=== PATIENT | female | born 1985 | race Caucasian/White ===

== ENCOUNTER → 2016-05-27 | Outpatient (CLI) | payer OTHER ==
[~2016-05-27] MED LIST: BCPILLS PO; FERR28TA2; IBUP-1050 PO; MTR600X PO; PRENTAB26 PO; TRAM-10 PO
--- NOTE | 2016-05-27 15:07 | MAMMOGRAPHY REPORT ---
ULTRASOUND OF BOTH BREASTS: 05/27/2016 CLINICAL HISTORY: Six-month follow-up of bilateral breast masses. History of ultrasound-guided core needle biopsy of the right 7:00 periareolar breast mass 12/15/2015, with pathology yielding fibrocy stic and fibroadenomatoid change. The patient is currently 13 weeks . COMPARISON: Comparison is made to exams dated: 11/26/2015 mammogram, 11/26/2015 ultrasound, 6 ultrasound biopsy, and 12/15/2015 mammogram - [facility]. TECHNIQUE: Real-time targeted ultrasound of both breasts was performed. FINDINGS: Real-time, high resolution targeted ultrasound was performed of the previously seen bilat eral breast masses. In the right breast at 7:00 periareolar region, again noted is an oval hypoecho ic parallel solid mass which measures 2.7 x 0.8 x 2 cm, not significantly changed compared to the exam where the mass measured 2.5 x 0.7 x 2.0 cm. This was previously biopsied and yielded b enign pathology. In the right breast at 1:00, 4 cm from the nipple, again noted is an oval hypoechoic parallel circum scribed mass which measures 5 x 3 x 4 mm, also stable compared to the 11/26/2015 exam. In the left b reast 1:00, 7 cm from the nipple, again noted is an oval circumscribed parallel hypoechoic solid mas s which measures 11 x 5 x 7 mm, not significantly changed compared to the 11/26/2015 exam. These 2 m asses appear similar to the previously biopsied mass and are probably benign and likely represent fi broadenomas. IMPRESSION: ACR-BI-RADS CATEGORY 3: PROBABLY BENIGN - FOLLOW-UP RECOMMENDED Three similar-appearing hypoechoic masses in bilateral breasts are stable compared to the 11/26/2015 exam. The largest mass in the right 7:00 periareolar region breast was biopsied and yielded benign pathology including fibrocystic and fibroadenomatoid changes. 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 Recommend another short interval follow-up ultrasound in 6 months to confirm one-year stability. The patient was verbally notified of the results. Opal Zurita M.D. ah/:05/27/2016 08:14:14 Cook Candy: Mireya BLANCO(R)(M), [facility] letter sent: Follow Up Recommended 3 BI-RADS Code: ACR-BI-RADS Category 3: Probably Benign
== END | disposition home or self-care (01) ==
LOC: C.MAMM 07:49
PROVIDERS: ATTEND Physician Assistant
DX: N63 Unspecified lump in breast (principal)

== ENCOUNTER 2016-12-05 21:02 | Inpatient (IN) | payer OTHER ==
[~2016-12-05] VITALS: Ht 162.6 cm; Wt 90.9 kg
[~2016-12-05 21:02] MED LIST changes: -FERR28TA2; -MTR600X PO; -PRENTAB26 PO
[2016-12-05 21:55] LABS: HEMATOCRIT 39.1 % (37-47); MEAN CORPUSCULAR HEMOGLOBIN 28.3 pg (25-34); MEAN CORPUSCULAR HGB CONC 33.2 g/dl (32-36); MEAN PLATELET VOLUME 9.3 fL (7.4-10.4); PLATELET COUNT 255 K/uL (130-400); WHITE BLOOD COUNT 9.45 K/uL (4.8-10.8)
[2016-12-05] MEDS ORDERED: BUPIVACAINE 0.25% 30 ML VIAL ONE (23:16)
[2016-12-05] MEDS ORDERED: EpHEDrine SULFATE INJ 50 MG/ML AMP ONE (23:16)
[2016-12-05] MEDS ORDERED: FENTANYL CITRATE INJ 50 MCG/1 ML 2 ML VIAL ONE (23:17)
[2016-12-05] MEDS ORDERED: FENTANYL 2MCG/ML ROPIV 1.25MG/ML 100ML BAG EPI ONE (23:17)
--- NOTE | 2016-12-05 23:56 | HISTORY & PHYSICAL EXAMINATION ---
DATE OF ADMISSION: 12/05/2016 HISTORY OF PRESENT ILLNESS: The patient is a 31-year-old G1, P0, due date 12/02/2016, making her 40 weeks and 3 days today; who presented to labor and delivery with contractions. On arrival she was found to be 3 to 4 cm dilated. She was made to ambulate. Cervix is now 6 cm. Decision therefore made to admit patient and anticipate vaginal delivery. She had no shortness of breath, no chills, no fever, no rupture of membranes. No bloody show. COURSE: Has been unremarkable. LABS: Blood type A positive, antibody negative, rubella immune, GBS negative. PAST MEDICAL HISTORY: History of dyslipidemia. PAST SURGICAL HISTORY: History of ERCP and cholecystectomy. ALLERGIES: SULFA DRUGS. SOCIAL HISTORY: The patient denies tobacco, drug or alcohol use. REVIEW OF SYSTEMS: Negative except as dictated in the HPI. FAMILY HISTORY: Noncontributory. PHYSICAL EXAMINATION: GENERAL: Well-developed, well-nourished white female in labor discomfort. HEART: S1, S2, regular rhythm and rate. LUNGS: Clear to auscultation bilaterally. ABDOMEN: Gravid. PELVIC: By nurse shows is 6 cm dilated. EXTREMITIES: No cyanosis, clubbing or edema. ASSESSMENT AND PLAN: A 31-year-old 1, para 0 at 40 and 3 weeks; presented to labor and delivery in labor. Plan is to admit patient and anticipate vaginal delivery. [facility]ITAL[facility]
[2016-12-06] MEDS: LACTATED RINGER'S 1000ML 1,000 ML IV SCH ×3 (00:01→07:23)
[2016-12-06] MEDS ORDERED: NALOXONE HCL INJ 1 MG in SODIUM CHLORIDE 0.9% 1000ML 1,000 ML IV PRN (00:10)
[2016-12-06] MEDS ORDERED: LACTATED RINGER'S 1000ML 500 ML IV PRN (00:10)
[2016-12-06] MEDS ORDERED: NALBUPHINE HCL INJ 10 MG/ML AMP IV PRN (00:15)
[2016-12-06] MEDS ORDERED: ONDANSETRON INJ 2 MG/ML 2 ML VIAL IV PRN (00:15)
[2016-12-06] MEDS ORDERED: EpHEDrine SULFATE INJ 50 MG/ML AMP IV PRN (00:15)
[2016-12-06] MEDS ORDERED: DiphenhydrAMINE HCL 50 MG/ML VIAL IV PRN (00:15)
[2016-12-06] MEDS ORDERED: NALOXONE HCL INJ 0.4 MG/1 ML VIAL/CARP IV PRN (00:15)
[2016-12-06] MEDS ORDERED: FERR28TA2 (00:22)
[2016-12-06] MEDS ORDERED: PRENTAB26 PO (00:22)
[2016-12-06 00:30] VITALS: Ht 162.6 cm; Wt 90.9 kg
[2016-12-06] MEDS ORDERED: OXYTOCIN 30 UNITS/500ML NSS IV ONE (07:03)
[2016-12-06] MEDS: FENTANYL 2MCG/ML ROPIV 1.25MG/ML 100ML BAG EPI PRN ×2 (07:09→09:11)
[2016-12-06] MEDS ORDERED: DIPHTHERIA/TETANUS/PERTUSSIS 0.5 ML SYR/VIAL IM. ONE (10:45)
[2016-12-06] MEDS ORDERED: HYDROCORTISONE ACETATE 25 MG SUPP PR PRN (10:45)
[2016-12-06] MEDS ORDERED: OXYTOCIN 30 UNITS/500ML NSS IV PRN (10:45)
[2016-12-06] MEDS ORDERED: VARICELLA VIRUS VACCINE LIVE 1 VIAL SQ. ONE (10:45)
[2016-12-06] MEDS ORDERED: BENZOCAINE 20% AER SPR 82.5 GM CAN EXT PRN (10:45)
[2016-12-06] MEDS ORDERED: SUPERCREAM 0.870 % 15GM JAR EXT PRN (10:45)
[2016-12-06] MEDS ORDERED: LANOLIN OINT EXT PRN ×2 (10:45)
[2016-12-06] MEDS ORDERED: ACETAMINOPHEN 325 MG TAB PO PRN (10:45)
[2016-12-06] MEDS ORDERED: OXYCODONE/ACETAMINOPHEN 5-325 TAB PO PRN (10:45)
[2016-12-06] MEDS ORDERED: ACETAMINOPHEN/CODEINE 300/30MG TAB PO PRN ×2 (10:45)
--- NOTE | 2016-12-06 11:22 | DELIVERY SUMMARY ---
DATE OF OPERATION: 12/06/2016 TIME OF DELIVERY: 10:05 a.m. DELIVERY OF PLACENTA: 10:08 a.m. HISTORY OF PRESENT ILLNESS: The patient is a 31-year-old 1, para 0 at 40 weeks and 4 days gestation who was admitted to labor and delivery on the morning of 12/06/2016 in active labor. She received an epidural for anesthesia. Artificial rupture of membranes was performed at 5:10 a.m. with light meconium stained amniotic fluid noted. She reached complete dilation at 5:10 a.m. She was allowed to labor down until she had the urge to push. She pushed to delivery at 10:05 a.m. She delivered a viable female infant in the right occiput anterior position to an intact perineum. The anterior shoulder was delivered with Kirsten position. The baby was delivered and placed on the patient's abdomen. Cord was clamped x2 and cut. Apgars were 8 at minute, 9 at 5 minutes. Please see nursing notes for further baby assessment. Cord blood was then obtained and intact placenta with 3-vessel cord was delivered at 10:08 a.m. Oxytocin infusion was then begun. The lower uterine segment and vagina was cleared of any blood clots and debris. Once excellent uterine tone was noted, exploration of the perineum noted a second degree midline perineal laceration, which was repaired with 2-0 and 3-0 Vicryl in a normal fashion. No other lacerations were seen. Digital rectal exam noted good sphincter tone. Estimated blood loss was 250 mL. All sponge, instrument and needle counts found to be correct x2. Both the patient and baby tolerated the delivery well and were in recovery with stable vital signs. I attest to the content of the Intraoperative Record and any orders documented therein. Any exceptions are noted below. MTDD
[2016-12-06] MEDS: IBUPROFEN 600 MG TAB PO PRN ×2 (12:58→20:28)
--- NOTE | 2016-12-06 13:08 | Anesthesia Procedure Note ---
Anesthesia Epidural Removal Nt Date & Time Dec 06, 2016 at 13:08 Vital Signs Pain Intensity: 0.0 Notes Mental Status: alert / awake / arousable, participated in evaluation Nausea / Vomiting: adequately controlled Pain: adequately controlled Airway Patency, RR, SpO2: stable & adequate BP & HR: stable & adequate Hydration State: stable & adequate Neuraxial Anesthesia: was administered Anesthetic Complications: no major complications apparent, pt satisfied with anesthetic care Epidural: removed without complications, with tip intact
[2016-12-06 15:55] VITALS: BP 136/80; PULSE 91; TEMP 36.6; O2SAT 96
[2016-12-06 19:30] VITALS: BP 132/80; PULSE 90; TEMP 36.4; O2SAT 97
[2016-12-06] MEDS: DOCUSATE SODIUM 100 MG CAP PO SCH (19:33)
[2016-12-06 23:30] VITALS: BP 112/67; PULSE 90; TEMP 36.4; O2SAT 97
[2016-12-07] MEDS: IBUPROFEN 600 MG TAB PO PRN ×4 (02:52→19:50)
[2016-12-07 03:00] VITALS: BP 125/73; PULSE 90; TEMP 36.4
[2016-12-07 07:46] LABS: HEMATOCRIT 27.7 % (37-47)
--- NOTE | 2016-12-07 08:13 | OB/GYN Progress Note ---
FISH AGENT Progress Note Date of Service Dec 07, 2016. Subjective conversation w/ patient, physical exam Ambulation: ambulating normally Voiding: no voiding problems Diet Tolerance: Regular Diet Lochia: Small Feeding Type: Breast Feeding Objective Vital Signs Date Time Temp Pulse Resp B/P (MAP) Pulse Ox O2 Delivery O2 Flow Rate FiO2 12/07/16 03:00 36.4 90 20 125/73 (90) Room Air 12/06/16 23:30 36.4 90 20 112/67 (82) Room Air 12/06/16 23:30 97 Room Air 12/06/16 19:30 Room Air 12/06/16 19:30 36.4 90 18 132/80 (97) 97 Room Air 12/06/16 15:55 96 Room Air 12/06/16 15:55 36.6 91 20 136/80 (98) 96 Room Air 12/06/16 12:45 Room Air Physical Exam General Appearance: WELL-APPEARING, NO APPARENT DISTRESS Fundus: Firm Extremities: non-tender, normal inspection, no pedal edema Laboratory Results Last 24 Hours Test 12/07/16 06:22 Hemoglobin 9.2 g/dL Hematocrit 27.7 % Assessment and Plan Post- Continue Routine Care: tent d/c in AM
[2016-12-07 08:15] VITALS: BP 118/68; PULSE 90; TEMP 36.7; O2SAT 99
[2016-12-07] MEDS: DOCUSATE SODIUM 100 MG CAP PO SCH ×2 (08:33→19:49)
[2016-12-07] MEDS: FERROUS SULFATE 325 MG TAB PO SCH (08:33)
[2016-12-07] MEDS: PRENATAL VITAMIN TAB PO SCH (08:33)
[2016-12-07 15:10] VITALS: BP 113/72; PULSE 88; TEMP 36.7; O2SAT 98
[2016-12-07] MEDS ORDERED: BISACODYL 5 MG TABEC PO SCH (20:00)
[2016-12-08] VITALS: BP 129/79; PULSE 86; TEMP 36.4; O2SAT 97
[2016-12-08] MEDS: IBUPROFEN 600 MG TAB PO PRN ×3 (00:07→08:00)
[2016-12-08 06:38] LABS: HEMATOCRIT 24.6 % (37-47); MEAN CELL VOLUME 86.6 fL (80-100); MEAN CORPUSCULAR HEMOGLOBIN 28.5 pg (25-34); MEAN CORPUSCULAR HGB CONC 32.9 g/dl (32-36); MEAN PLATELET VOLUME 8.8 fL (7.4-10.4); PLATELET COUNT 185 K/uL (130-400); RED BLOOD COUNT 2.84 M/uL (4.2-5.4); WHITE BLOOD COUNT 8.62 K/uL (4.8-10.8)
[2016-12-08] MEDS ORDERED: BISACODYL 10 MG SUPP PR PRN (07:00)
[2016-12-08 07:13] VITALS: BP 104/63; PULSE 78; TEMP 36.8; O2SAT 99
[2016-12-08] MEDS: FERROUS SULFATE 325 MG TAB PO SCH (07:59)
[2016-12-08] MEDS: DOCUSATE SODIUM 100 MG CAP PO SCH (07:59)
[2016-12-08] MEDS: PRENATAL VITAMIN TAB PO SCH (07:59)
[2016-12-08 10:00] VITALS: BP_DIAS 63; PULSE 78; TEMP 36.8
[2016-12-08] MEDS ORDERED: MTR600X PO (10:09)
--- NOTE | 2016-12-08 10:10 | Discharge Instructions ---
Discharge Instructions Date of Service Dec 08, 2016. Admission Reason for Admission: Check Labor Discharge Discharge Diagnosis / Problem: Vaginal Delivery Discharge Goals Goal(s): Routine recovery after delivery Medications Continue Dispensed Medications: supercream, dermaplast, tucks Activity Recommendations Activity Limitations: per Instructions/Follow-up section . Instructions / Follow-Up Instructions / Follow-Up ACTIVITY RECOMMENDATIONS: * Gradual return to full activity over the next 2-3 weeks. * No lifting - nothing heavier than baby over the next 2-3 weeks. * Do not engage in vigorous exercise, sexual activity or sports until cleared by your physician. * Do not drive or operate any motorized equipment until cleared by your physician. * You may shower/bathe daily. BREAST CARE: If you are not breast feeding: * Wear a supportive bra 24 hours a day for one to two weeks. * Avoid stimulating your breasts and nipples as much as possible during the first few weeks after delivery. * When taking a shower, have the warm water hit your back, not breasts. * When your breasts feel full, apply ice packs. Usually three to four times a day helps ease the discomfort. * Take a mild pain medication (Tylenol/Motrin) when you are uncomfortable. If breast feeding: * Use breast milk to lubricate nipples. Lansinoh cream may be used for sore nipples. You do not need to remove cream prior to breast feeding. If using a different brand of cream, check the label for directions regarding removal of cream prior to nursing. * Wear a supportive bra. * If having problems with breasts or breast feeding, call a residential sales consultant or your health care provider. EPISIOTOMY CARE: After delivery, if you have an episiotomy (stitches), the following steps will ease discomfort and aid healing. * For the first 24 hours after delivery, place ice packs next to your episiotomy to help reduce swelling. * After the first 24 hour-period, sitz baths, either portable or in the tub, are suggested. A shower with a shower arm sprayed over the episiotomy may be comforting. * Daisy care should be done after each voiding and bowel movement. Squirt warm water from a plastic bottle over the perineum (region of the body between the anus and urinary opening) and pat dry. * Use Dermoplast to ease discomfort. Shake container. [place] directly over the episiotomy. * Place a Tucks on a clean sanitary pad next to your episiotomy. OVER THE COUNTER MEDICATION: * For discomfort or pain, you may use Acetaminophen (Tylenol), Ibuprofen (Advil ), or Naproxen (Aleve) following the package directions. * For constipation you may use Colace following the package directions. SPECIAL CARE INSTRUCTIONS: When you are discharged from the hospital, it is important for you to follow the instructions listed below: * During the first week at home, you should be able to care for yourself and your baby. In addition, the usual light household activities are encouraged. * Limit your activities to the way you feel. Do not try to clean the house or move furniture. Be sensible. * If you actively engage in sports and have done so up until the time of your delivery, you may resume these activities as soon as you feel able. This may take up to one month or even longer. Use good judgment. * Continue to take your vitamins for at least six weeks after the of your baby. * Your diet need not be limited unless you were on a special diet before your delivery. Breast-feeding mothers need around 2500 calories per day and at least 64-80 ounces of fluid per day (8 to 10 glasses). * You should eat foods from the four major food groups. Crash diets or fad diets are to be avoided. Eating lean meats, fresh fruits and vegetables, low-fat dairy products, high fiber foods and a regular exercise program, will help you get back to your pre- weight without putting your health at risk. * Constipation is sometimes a problem after delivery. Take a mild laxative as needed. If breast feeding, Milk of Magnesia is acceptable to use. You may use a suppository or Fleets enema if no episiotomy. * A daily shower or tub bath is suggested. Be sure to thoroughly and gently dry the perineum. * A bloody vaginal discharge will usually continue until around four weeks post . A small amount of bleeding may continue for as long as six weeks. Vaginal discharge changes from the bright red bleeding after delivery to pink then brownish and finally yellowish-pink before becoming white and disappearing. * Bleeding may increase with activity. Your first period may come in 4-8 weeks. If you are breast feeding, your period may be delayed even longer. * Independence (sex) can begin whenever both you and your partner feel comfortable and do not have any form of genital infection. It is recommended that you wait until after your return appointment and discuss with your physician. If you have questions, please talk to your health care practitioner. A condom should be used to prevent infection and . * Foreplay, gentle intercourse and lubrication is very important the first several times to prevent pain. A water-based lubricant such as K-Y jelly or Astroglide may be used. * Tampons may be used six weeks after delivery. * Douching should be avoided for 6 weeks after delivery. * If you have RH negative blood and your baby is RH positive, you will receive RHOGAM by injection prior to discharge. The nurse will give you a card to keep with you that has the date and place that you received RHOGAM after delivery. * During your care, you had a Rubella screen done to check for the presence of rubella antibodies in your blood. If your test was negative, you will receive a Rubella vaccine prior to discharge. This vaccine may cause a fever, soreness at the injection site and flu-like symptoms. If these symptoms persist, notify your health care practitioner. is not advised for three months after a Rubella vaccine. There is a higher chance of having a baby with defects if conceived within three months of getting the vaccine. * If you were discharged 24 hours from delivery or before 48 hours: Visiting nurses will come to your home 48 hours after discharge to assess you and your baby. The visiting nurse will meet with you while you are in the hospital to arrange a time and get directions to your home. * Verbalizes understanding of car seat law as reviewed with patient nursing. * Car Seat hand-out given and reviewed with patient by nursing. * Shaken baby information reviewed with patient by nursing. Call you doctor if: * Heavy bleeding (saturating several pads an hour) or passing clots the size of your fist. * A fever >101 degrees F (38.3 degrees C) on two occasions four hours apart and/or chills. * Unusual pain in the pelvic or vaginal areas. * "Baby Blues" lasting longer than two weeks. If you have any questions or concerns, call your health care practitioner at . FOLLOW-UP VISIT: * Please call the office at to schedule a 6 week examination. It is important you keep this appointment. * It is important for you to make arrangements for either yearly or twice yearly check-ups thereafter. Current Hospital Diet Patient's current hospital diet: Regular OB Diet Discharge Diet Recommended Diet: Regular OB Diet Pending Studies Studies pending at discharge: no Medical Emergencies . Who to Call and When: Medical Emergencies: If at any time you feel your situation is an emergency, please call 911 immediately. . Non-Emergent Contact Non-Emergency issues call your: Primary Care Provider, Agriscience Technology Instructor . . "Provider Documentation" section prepared by Cole Ruff. . VTE Core Measure Inpt VTE Proph given/why not?: Treatment not indicated
--- NOTE | 2016-12-08 10:12 | OB/GYN Progress Note ---
SENIOR MEDICAL TRANSCRIPTIONIST Progress Note Date of Service Dec 08, 2016. Subjective conversation w/ patient Ambulation: ambulating normally Voiding: no voiding problems Passing Gas: Yes Diet Tolerance: Regular Diet Lochia: Moderate Feeding Type: Breast Feeding Pain: 2/10 Notes: Doing well, no concerns. Pain well controlled. Lochia decreasing. Tolerating regular diet. Ambulating without difficulty. Would like to go home today. Objective Vital Signs Date Time Temp Pulse Resp B/P (MAP) Pulse Ox O2 Delivery O2 Flow Rate FiO2 12/08/16 10:00 36.8 78 18 12/08/16 07:45 Room Air 12/08/16 07:13 36.8 78 18 104/63 (77) 99 Room Air 12/08/16 00:00 Room Air 12/08/16 00:00 36.4 86 18 129/79 (96) 97 Room Air 12/07/16 15:10 36.7 88 18 113/72 (86) 98 Room Air 12/07/16 15:10 98 Room Air Physical Exam General Appearance: WELL-APPEARING Respiratory/Chest: chest non-tender, lungs clear Cardiovascular: regular rate, rhythm Abdomen: normal bowel sounds, soft Fundus: Firm Extremities: normal range of motion, non-tender, no calf tenderness Laboratory Results Last 24 Hours Test 12/08/16 06:24 White Blood Count 8.62 K/uL Red Blood Count 2.84 M/uL Hemoglobin 8.1 g/dL Hematocrit 24.6 % Mean Corpuscular Volume 86.6 fL Mean Corpuscular Hemoglobin 28.5 pg Mean Corpuscular Hemoglobin Concent 32.9 g/dl RDW Standard Deviation 45.6 fL RDW Coefficient of Variation 14.4 % Platelet Count 185 K/uL Mean Platelet Volume 8.8 fL Assessment and Plan Post- Day Number: 2 Continue Routine Care: -D/C home today -F/U in 6 weeks.
== END 2016-12-08 10:35 | disposition home or self-care (01) | DRG 775 ==
LOC: C.OPB 21:02 → C.LD 21:03 → C.OPB 21:34 → C.LD 21:34 → C.OBG 12-06 12:45
PROVIDERS: ADMIT Obstetrics & Gynecology; ATTEND Obstetrics & Gynecology
PROC: 0KQM0ZZ Repair Perineum Muscle, Open Approach (ICD-10-PCS; principal; 2016-12-06)
PROC: 10E0XZZ Delivery of Products of Conception, External Approach (ICD-10-PCS; principal; 2016-12-06)
DX: O48.0 Post-term pregnancy (principal); O70.1 Second degree perineal laceration during delivery; Z37.0 Single live birth; Z3A.40 40 weeks gestation of pregnancy; Z88.2 Allergy status to sulfonamides